=== PATIENT | female | born 1940 | race Caucasian/White ===

== ENCOUNTER 2018-03-02 12:27 | Day surgery (SDC) | payer MEDICARE, BC ==
[~2018-03-02 12:27] MED LIST: ACETAMINOPHEN 1,000 MG/100 ML BTL IV ONE; CEFAZOLIN 2 Gram 2 GM/50 ML BAG IVPB ONE; CELECOXIB 100 MG CAPSULE PO ONE; FAMOTIDINE 20MG TABLET PO ONE; MECLIZINE 25 MG TABLET PO ONE; METOCLOPRAMIDE 10 MG TABLET PO ONE; VANCOMYCIN HCL 1,000 MG in DEXTROSE 5 % IN WATER 250 ML IVPB ONE
[2018-03-02] MEDS ORDERED: SCOPOLAMINE 1 PATCH TDSY TD ONE (12:28)
[2018-03-02] MEDS ORDERED: BUPIVACAINE 0.5% W/EPI MPF 30 ML VIAL IVP ONE (12:28)
[2018-03-02] MEDS ORDERED: ROPIVACAINE HCL (NAROPIN) /PF 5MG/ML 20ML VIAL IV ONE (12:28)
[2018-03-02] MEDS ORDERED: 0.9 % SODIUM CHLORIDE 10 ML VIAL IVP ONE (12:28)
[2018-03-02] MEDS ORDERED: MIDAZOLAM HCL 2MG/2ML VIAL IV ONE (12:28)
[2018-03-02] MEDS ORDERED: DEXAMETHASONE 4 MG/ML 1ML VIAL IVP ONE ×2 (12:28)
[2018-03-02] MEDS ORDERED: HYDROMORPHONE HCL 2 MG/ML VIAL IV ONE (12:28)
[2018-03-02] MEDS ORDERED: ONDANSETRON HCL IV 4 MG/2 ML VIAL IVP ONE (12:28)
[2018-03-02] MEDS ORDERED: SEVOFLURANE 250 ML INH ONE (12:28)
[2018-03-02] MEDS ORDERED: TRANEXAMIC ACID 1,000 MG/10 ML ML IV ONE ×2 (12:28)
[2018-03-02] MEDS ORDERED: PROPOFOL 10 MG/ML VIAL IV ONE (12:28)
[2018-03-02] MEDS ORDERED: LIDOCAINE 2% MDV (20MG/ML) 20ML VIAL IV ONE (12:28)
[2018-03-02] MEDS ORDERED: FENTANYL PF 100MCG/2ML VIAL IV ONE (12:28)
[2018-03-02 13:44] LABS: ABO GROUP A; ANTIBODY SCREEN NEGATIVE (NEGATIVE); RH TYPE POSITIVE
[2018-03-02] MEDS ORDERED: KETOROLAC 30 MG/ML VIAL IVP PRN ×2 (15:21)
[2018-03-02] MEDS ORDERED: DIPHENHYDRAMINE HCL 25 MG CAPSULE PO PRN (15:21)
[2018-03-02] MEDS ORDERED: ACETAMINOPHEN 325 MG TAB PO PRN (15:21)
[2018-03-02] MEDS ORDERED: MAGNESIUM HYDROXIDE 30 ML UDC PO PRN (15:21)
[2018-03-02] MEDS ORDERED: ACETAMINOPHEN W/ CODEINE 300MG/60MG TABLET PO PRN ×2 (15:21)
[2018-03-02] MEDS ORDERED: ZOLPIDEM TARTRATE 5 MG TABLET PO PRN (15:21)
[2018-03-02] MEDS ORDERED: ONDANSETRON HCL IV 4 MG/2 ML VIAL IVP PRN (15:21)
[2018-03-02] MEDS ORDERED: HYDROCODONE/APAP 10/325 TABLET PO PRN ×2 (15:21)
[2018-03-02] MEDS ORDERED: NALOXONE 0.4 MG/1 ML VIAL IVP PRN (15:21)
[2018-03-02] MEDS ORDERED: AL HYDROX/MAG HYDROX 30ML UD PO PRN (15:21)
[2018-03-02] MEDS ORDERED: BISACODYL 10 MG SUPP RC PRN (15:21)
[2018-03-02] MEDS ORDERED: HYDROMORPHONE HCL 2 MG/ML VIAL IM PRN (15:21)
[2018-03-02] MEDS ORDERED: NITROGLYCERIN 0.4MG SL TABLET #25 BTL SL PRN (16:00)
[2018-03-02] MEDS: CEFAZOLIN 1 Gram 1 GM/50 ML BAG IVPB SCH (21:25)
[2018-03-02] MEDS: DOCUSATE SODIUM 100 MG CAPSULE PO SCH (21:26)
[2018-03-02] MEDS ORDERED: RIVAROXABAN 10 MG TABLET PO SCH (21:30)
[2018-03-02] MEDS: PATIENT OWN MED: CLONIDINE 0.2 MG PO SCH (21:33)
[2018-03-02] MEDS: HYDRALAZINE 100 MG PO SCH (21:34)
[2018-03-02] MEDS: PATIENT OWN MED: GABAPENTIN 300 MG PO SCH (21:34)
[2018-03-02] MEDS: SULFAMETHOXAZOLE PO SCH (21:36)
[2018-03-02] MEDS: TRIMETHOPRIM PO SCH (21:36)
[2018-03-02] MEDS ORDERED: TOPIRAMATE 100 MG PO SCH (22:00)
[2018-03-02] MEDS ORDERED: PATIENT OWN MED: LOSARTAN 25 MG PO SCH (22:00)
[2018-03-02] MEDS ORDERED: PATIENT OWN MED: ATORVASTATIN 80 MG PO SCH (22:00)
[2018-03-03] MEDS: POTASSIUM CHLORIDE/D5-0.9%NACL 20 MEQ/1,000 ML BAG IV SCH ×3 (01:04→07:29)
[2018-03-03 06:28] LABS: HEMATOCRIT 30.8 % (35.0-47.0); HEMOGLOBIN 9.2 gm/dl (11.6-16.0)
[2018-03-03] MEDS: CEFAZOLIN 1 Gram 1 GM/50 ML BAG IVPB SCH (06:32)
[2018-03-03] MEDS: PATIENT OWN MED: CLONIDINE 0.2 MG PO SCH (09:34)
--- NOTE | 2018-03-03 09:36 | Rehab Evaluation ---
Patient Information - Patient Information Diagnosis: Left Knee OA Ordered Treatment: PT Evaluate and Treat Status: Initial Evaluation Surgery: Yes (L TKA) Date of Surgery: 03/02/18 Past Medical/Surgical Hx: PAST MEDICAL/SURGICAL HISTORY Past Surgical History cardiac stent x's 20 Oct 2017 RTKA 2008 cardiac stents 2015 and 2016 hyst right CTR cystocele and rectocele repair right RTC cervical fusion and repair with plate heart caths PMH - Respiratory Hx Respiratory Disorders Yes Hx Pneumonia Yes Hx Sleep Apnea Yes Hx of CPAP No Hx of SOB Yes: with exertion PMH - Cardiovascular Hx Cardiovascular Disorders Yes Hx Abnormal EKG Yes Hx Cardiac Catheterization Yes Hx Heart Attack Yes: September 2016 Hx Hypertension Yes: on meds good control Hx Coronary Artery Disease Yes Hx Coronary Stent Yes: total of 4 stents 2015 2016 and 2017 Exercise Tolerance Poor Residual Deficits from CVA Yes Comment: due to knee pain PMH - Neuro Hx Neurological Disorders Yes Hx Cerebrovascular Accident Yes: 2017 some paralysis left side face and left fingers "mini stroke" Comment: forgetfull. shingles 2016 PMH - GI Hx Gastrointestinal Disorders No Hx Weight Loss/Weight Gain Yes: recent 10 lb gain PMH - Hx Genitourinary Disorders Yes Hx Bladder Problem Yes: frequency Comment: WEARS DEPENDS PMH - Endocrine Hx Endocrine Disorders Yes Hx Diabetes Yes: diet controlled Comment: pt does not check sugars PMH - Musculoskeletal Hx Musculoskeletal Disorders Yes Hx Arthritis Yes Hx Gout Yes PMH - Psych Hx Psychiatric Problems No PMH - Hematology/Oncology Hx Hematology/Oncology Yes Disorders Hx Bruising Yes: bruises easily on blood thinner Hx Blood Transfusion Reaction No Premorbid Status: Detail (Patient was previously IND with all mobility and transfers.) Social History: Detail (Patient lives in a one story home with her spouse. There are 2 sets of 4 stairs to get into her home with a railing on the left side. She has a tub/shower combination and an elevated toilet. She currently owns a front wheeled walker and a cane.) Precautions: [place], Fall, Other (WBAT on L LE) - Time With Patient Total Time Spent With Patient (Min): 25 Treatment Procedures: Detail (Initial evaluation, gait training, and exercise education.) Subjective Information - Subjective Information Per Patient (Patient was lying supine in bed upon arrival, and reports 5/10 L knee soreness.) Objective Data - Pain Pain Present: Yes Pain Intensity: 5 - Mental Status Patient Orientation: Oriented x3 - Visual Perception Appears within normal limits for therapeutic activities - ROM Not within normal limits (L knee ROM limited due to status post-surgery.) - Strength/Tone Not within normal limits (Functional strength during gait, but L knee strength is limited due to status post-surgery.) - Bed Mobility Independent (Patient was IND with supine to and from sit transfers.) - Transfers Independent (Patient performed sit to stand transfer with supervision for safety.) - Balance Balance Sitting: Good Balance Standing: Good - Sensation Intact - Gait Detail (Patient ambulated 150' with a front wheeled walker and supervision for safety. Patient also ambulated a flight of 3 stairs with a folded walker, hand rail and supervision for safety. WBAT on L LE.) Therapy Assessment - Therapy Assessment Detail (Patient tolerated all activity well. Patient is IND with all mobility and transfers. Feel patient will progress well with continued PT.) Patient Education - Patient Education Teaching Topic: Exercise/Activity (Ankle pumps, heel slides, straight leg raises , quad sets, hamstring sets, and glut sets.) Response: Return Demonstration, Verbalize Understanding Teaching Method: Demonstration, Audiovisual Teaching Recipient: Patient Barriers To Learning: Age Related Problem List - Problem List Physical Therapy Problem List: Detail (1) L knee limited ROM 2) L knee limited strength) Goals - Goals Physical Therapy Goals: Patient has met all IP PT goals. Prognosis - Prognosis Good Plan - Plan Physical Therapy Plan: Patient has met all IP PT goals and will be discharged to home PT.
[2018-03-03] MEDS: PATIENT OWN MED: GABAPENTIN 300 MG PO SCH (09:37)
[2018-03-03] MEDS: TRIMETHOPRIM PO SCH (09:37)
[2018-03-03] MEDS: SULFAMETHOXAZOLE PO SCH (09:37)
[2018-03-03] MEDS: HYDRALAZINE 100 MG PO SCH (09:38)
[2018-03-03] MEDS: DOCUSATE SODIUM 100 MG CAPSULE PO SCH (09:39)
[2018-03-03] MEDS ORDERED: PATIENT OWN MED: AMLODIPINE 10 MG PO SCH (10:00)
[2018-03-03] MEDS ORDERED: PATIENT OWN MED: ASPIRIN 81 MG PO SCH (10:00)
[2018-03-03] MEDS ORDERED: FERROUS SULFATE 325 MG TAB PO SCH (10:00)
[2018-03-03] MEDS ORDERED: FISH OIL 1000 MG PO SCH (10:00)
[2018-03-03] MEDS ORDERED: FOLIC ACID 400 MCG PO SCH (10:00)
[2018-03-03] MEDS ORDERED: PATIENT OWN MED: CLOPIDOGREL 75 MG PO SCH (10:00)
--- NOTE | 2018-03-03 11:48 | Rehab Evaluation ---
Patient Information - Patient Information Diagnosis: Left Knee OA Ordered Treatment: OT Evaluate and Treat Status: Initial Evaluation Surgery: Yes (L TKA) Date of Surgery: 03/02/18 Past Medical/Surgical Hx: PAST MEDICAL/SURGICAL HISTORY Past Surgical History cardiac stent x's 20 Oct 2017 RTKA 2008 cardiac stents 2015 and 2016 hyst right CTR cystocele and rectocele repair right RTC cervical fusion and repair with plate heart caths PMH - Respiratory Hx Respiratory Disorders Yes Hx Pneumonia Yes Hx Sleep Apnea Yes Hx of CPAP No Hx of SOB Yes: with exertion PMH - Cardiovascular Hx Cardiovascular Disorders Yes Hx Abnormal EKG Yes Hx Cardiac Catheterization Yes Hx Heart Attack Yes: September 2016 Hx Hypertension Yes: on meds good control Hx Coronary Artery Disease Yes Hx Coronary Stent Yes: total of 4 stents 2015 2016 and 2017 Exercise Tolerance Poor Residual Deficits from CVA Yes Comment: due to knee pain PMH - Neuro Hx Neurological Disorders Yes Hx Cerebrovascular Accident Yes: 2017 some paralysis left side face and left fingers "mini stroke" Comment: forgetfull. shingles 2016 PMH - GI Hx Gastrointestinal Disorders No Hx Weight Loss/Weight Gain Yes: recent 10 lb gain PMH - Hx Genitourinary Disorders Yes Hx Bladder Problem Yes: frequency Comment: WEARS DEPENDS PMH - Endocrine Hx Endocrine Disorders Yes Hx Diabetes Yes: diet controlled Comment: pt does not check sugars PMH - Musculoskeletal Hx Musculoskeletal Disorders Yes Hx Arthritis Yes Hx Gout Yes PMH - Psych Hx Psychiatric Problems No PMH - Hematology/Oncology Hx Hematology/Oncology Yes Disorders Hx Bruising Yes: bruises easily on blood thinner Hx Blood Transfusion Reaction No Premorbid Status: Detail (Patient was previously IND with all mobility, ADLs and transfers.) Social History: Detail (Patient lives in a one story home with her spouse. There are 2 sets of 4 stairs to get into her home with a railing on the left side. She has a tub/shower combination and an elevated toilet. She currently owns a front wheeled walker and a cane.) Precautions: [place], Fall, Other (WBAT on L LE) - Time With Patient Total Time Spent With Patient (Min): 25 Treatment Procedures: Detail (OT eval LOW) Subjective Information - Subjective Information Per Patient (Patient reports that she already had a R TKA and is familiar with all modified drsg techniques. Her spouse also recently had a TKA and they went through these same procedures then. Patient is feeling confident and ready for discharge.) Objective Data - Pain Pain Present: Yes Pain Intensity: 4 (L knee) Pain Scale Used: Numeric (1 - 10) - Mental Status Patient Orientation: Oriented x3 - Visual Perception Appears within normal limits for therapeutic activities - ROM Within normal limits (BUE's. Patient reporting L arm pain from an incident while at a park but this does not affect ability to utilize walker safely.) - Strength/Tone Within normal limits (BUE's) - Coordination Appears within normal limits for therapeutic activities - Bed Mobility Independent (supine<>SS EOB) - Transfers Independent (patient is independent with sit<>stand t/f using 2WW) - Balance Balance Sitting: Good Balance Standing: Fair (uses 2WW for support) - Gait Detail (Patient ambulated to and from BR independently using 2WW) - ADL's/IADL's Detail (Pt independent with LB and UB drsg using modified techniques. Pt able to verbalize all techniques for drsg without verbal cues. Her spouse will be available to assist as needed for sock and shoe don if patient needs help later. Patient was independent with ambulation from bed<>BR to complete oral care and grooming standing at sink with no loss of balance.) Therapy Assessment - Therapy Assessment Detail (Patient is independent with ADLs and demonstrates safety using 2WW. She is able to verbalize all modified drsg techniques without verbal cues. Patient safe to return home.) Patient Education - Patient Education Teaching Topic: Other (modified drsg techniques) Response: Return Demonstration, Verbalize Understanding Teaching Recipient: Patient, Significant Other Barriers To Learning: None Problem List - Problem List Physical Therapy Problem List: Detail (1) L knee limited ROM 2) L knee limited strength) Goals - Goals Physical Therapy Goals: Patient has met all IP PT goals. Prognosis - Prognosis Good Plan - Plan Physical Therapy Plan: Patient has met all IP PT goals and will be discharged to home PT. Occupational Therapy Plan: Patient is independent with ADLs and able to independently verbalize all modified drsg techniques. No further inpatient OT needed at this time.
--- NOTE | 2018-03-06 12:44 | Operative Note ---
DATE OF SURGERY: 03/02/2018 PREOPERATIVE DIAGNOSIS: END-STAGE ARTHROSIS OF THE LEFT KNEE. POSTOPERATIVE DIAGNOSIS: END-STAGE ARTHROSIS OF THE LEFT KNEE. PROCEDURE: Cemented left total knee arthroplasty using [employer] Marley II components , with a size 3 [place] Chrome femur, a size 2 stemmed tibial baseplate, an 11 mm lipped tibial insert, and the patella was not resurfaced because it was too thin. STAFF SURGEON: KELVIN PROCTOR M.D. ANESTHESIA: GENERAL. PREPARATION: CHLORAPREP. INDIVIDUAL CONSIDERATIONS: None. PROCEDURE: The patient was taken to the Operating Room and placed supine on the operating table. She had a successful induction with general anesthetic. Her left lower extremity was prepped and then draped in the usual fashion. The patient had a midline approach to the knee. Sharp dissection carried down through the skin and subcutaneous tissues. Small veins were coagulated with a Bovie. A medial arthrotomy was performed. The patella was everted and the knee was flexed. The patient had exposed bone in pretty much all three compartments. The fat pad was resected, the ACL was sacrificed, provisional anterior meniscectomies were performed, and the capsule was released from the medial proximal tibia. The initial femoral fuel pilot engineer hole was then made free hand. The intramedullary femoral cutting jig was placed. It was cut in 7.0 degrees of valgus and adjusted for rotation and secured with pins for a 10 mm resection. The initial transverse cut was then made. A skin guide was placed for the anterior and posterior fuel pilot engineer holes. It was found that a size 3 would fit appropriate. The anterior and posterior cuts followed by chamfer cuts were made , osteophytes were removed, and the size 3 trial was placed and found to fit well. The tibia was brought forward and the remainder of the meniscal remnants were removed with a Bovie. The extraarticular tibial cutting jig was placed. It was cut in neutral with a 3 degree AP slope. Care was taken to adjust for rotation and flexion using the extraarticular alignment guide and bony landmarks. It was set for a 9 mm resection, keyed off the high lateral side and secured with pins. When cutting the tibia, care was taken to preserve the PCL insertion on the tibia. After removing osteophytes, I could fit a size 2. With an 11 mm trial and the femoral trial, there was excellent motion and stability. Ligamentous balance, rotation, and alignment were thought to be normal. The femoral fuel pilot engineer holes were impacted and the triflange tibial stamp was impacted and these trial components were removed. The patient unfortunately only had a 17 mm thick patella. If I were to cut it, it would leave much less than 9 mm and she was obese and I though the risk of fracture of the patella from resurfacing would be too high, so I elected to just trim osteophytes. The tourniquet was let down briefly to get bleeders posteriorly and then placed back up again. saline with Ancef mixed. The bony surfaces were then dried. A size 2 stemmed tibial baseplate was cemented into place followed by impaction of the 11 mm lipped tibial insert followed by cementing in the size 3 [place] Chrome femur. Implant surfaces were compressed, excess cement was removed, and then after the cement had set, there was excellent motion and stability. Ligamentous balance, rotation, alignment, and patellofemoral tracking were normal and no lateral release was required. Again irrigation. The tourniquet was let down. Hemostasis was obtained with a Bovie. The capsule was then closed with a running #2 Quill. The subcu was closed in layers with running 0 Quill and the skin was closed with andrea. I did infiltrate the skin and periosteum and subcutaneous tissue with 30 mL of 0.5% Marcaine with Epinephrine prior to closure and then after closure, she did receive a gram of tranexamic acid mixed with 30 mL of saline injected into the knee. The patient tolerated the procedure well. Needle and sponge counts were correct. Estimated blood loss was minimal and she was taken back to Recovery in good condition. There were no complications. JOB NUMBER: [id number] [facility]
== END 2018-03-03 13:00 | disposition home health service (06) ==
LOC: SUR 12:27 → MEDSURG 17:17 → SUR 03-03 13:00
PROVIDERS: ATTEND Orthopaedic Surgery
DX: M17.12 Unilateral primary osteoarthritis, left knee (principal); I10 Essential (primary) hypertension; Z79.01 Long term (current) use of anticoagulants; I25.10 Atherosclerotic heart disease of native coronary artery without angina pectoris; G47.33 Obstructive sleep apnea (adult) (pediatric); E66.9 Obesity, unspecified; Z68.35 Body mass index [BMI] 35.0-35.9, adult; Z86.73 Personal history of transient ischemic attack (TIA), and cerebral infarction without residual deficits
CPT/HCPCS: 27447; 64447; 01402; 85018; 85014; 80048; 86900; 86901; 86850; 76942; J2405; J3370; J3010; J0690 ×3; J1170; J3490 ×2; J2795; G8978; G8979; G8980; G8987; G8988; G8989; C1776; J3480; J7060